=== PATIENT | male | born 1955 | race Caucasian/White ===

== ENCOUNTER 2023-01-25 13:17 | Outpatient (CLI) | payer MEDICARE | END 2023-01-25 13:18 | disposition home or self-care (01) | LOC: CSHWCC 13:17 | PROVIDERS: ATTEND Nurse Practitioner Family | DX: S31.000D Unspecified open wound of lower back and pelvis without penetration into retroperitoneum, subsequent encounter (principal) | CPT/HCPCS: 97139; G0463; 99203 ==

== ENCOUNTER 2023-02-08 11:10 | Outpatient (CLI) | payer MEDICARE | END 2023-02-08 11:11 | disposition home or self-care (01) | LOC: CSHWCC 11:10 | PROVIDERS: ATTEND Nurse Practitioner Family | DX: S31.000D Unspecified open wound of lower back and pelvis without penetration into retroperitoneum, subsequent encounter (principal) | CPT/HCPCS: 97597 ==

== ENCOUNTER 2023-02-23 08:28 | Outpatient (CLI) | payer MEDICARE | END 2023-02-23 08:29 | disposition home or self-care (01) | LOC: CSHWCC 08:28 | PROVIDERS: ATTEND Nurse Practitioner Family | DX: S31.000D Unspecified open wound of lower back and pelvis without penetration into retroperitoneum, subsequent encounter (principal) | CPT/HCPCS: 97139; G0463; 99212 ==